=== PATIENT | female | born 1970 | race Two or more races ===

== ENCOUNTER 2022-09-29 22:55 | Emergency (ER) | payer OTHER ==
[~2022-09-29] VITALS: Ht 165.1 cm; Wt 72.6 kg
[2022-09-29 23:06] VITALS: BP 135/61
--- NOTE | 2022-09-29 23:22 | NUR ---
FAMILY REUNIFICATION SPECIALIST AT PT'S BEDSIDE
[2022-09-29] MEDS ORDERED: IBUPROFEN 600 MG TABLET ONE (23:38)
[2022-09-29] MEDS: IBUPROFEN 600 MG TABLET PO ONE ×2 (23:41)
--- NOTE | 2022-09-29 23:43 | NUR ---
APPLIED R KNEE IMMOBILIZER AND CRUTCHES GIVEN TO PT
[2022-09-30] MEDS ORDERED: IBUP-1955 PO (00:02)
[2022-09-30] MEDS ORDERED: HYDR-4303 PO (00:02)
--- NOTE | 2022-09-30 00:20 | NUR ---
Patient discharged to home in stable condition. Written and verbal after care instructions given. Patient verbalizes understanding of instruction.
== END 2022-09-30 01:26 | disposition home or self-care (01) ==
LOC: ER 22:57
DX: S82.041A Displaced comminuted fracture of right patella, initial encounter for closed fracture (principal); W01.0XXA Fall on same level from slipping, tripping and stumbling without subsequent striking against object, initial encounter; Y93.89 Activity, other specified; Y92.89 Other specified places as the place of occurrence of the external cause; Y99.8 Other external cause status
CPT/HCPCS: 73564-TC; 73590-TC